=== PATIENT | female | born 1995 | race Caucasian/White ===

== ENCOUNTER 2019-08-04 21:57 | Emergency (ER) | payer MEDICAID, OTHER ==
[~2019-08-04] VITALS: Ht 165 cm; Wt 81.6 kg
--- OUTSIDE RECORDS SUMMARY | 2019-08-04 22:03 | XMS REPORT | Referral Summary ---
Author Author [facility] Organization [facility] Address Unknown Phone Unavailable Care Team Providers Care Event Decorator Name Role Phone Tonja Rodriguez PCP Encounter Date(s): 01/22/19 - 01/22/19 [facility] [place] [address] [place] [address] Discharge Disposition: 01-Home or Self Care Attending Physician: Consuelo Arce MD Vital Signs No data available for this section Problem List Condition Effective Dates Status Health Status Informan t Pseudotumor Active cerebri(Confirmed) Family history of Active congenital anomaly(Confirmed) History of Active delivery(Confirmed) Obesity in Active , antepartum(Confirmed ) (Confirmed) 05/19/18 Active (Confirmed) 03/06/13 - 12/12/13 Resolved (Confirmed) 06/25/14 - 04/01/15 Resolved (Confirmed) < 03/15/18 Resolved Allergies, Adverse Reactions, Alerts Substance Reaction Severity Status ibuprofen Active Rocephin Active Dilaudid Active Nuts Active Medications acetaminophen-phenylephrine 500 mg-5 mg oral tablet 2 tabs, Oral, q6hr, # 100 tabs, 0 Refill(s) Start Date: 12/23/18 Status: Ordered albuterol 90 mcg/inh inhalation powder 2 puffs, Inhalation, q4hr, SHORTNESS OF AIR, 0 Refill(s) Start Date: 09/02/18 Status: Ordered HYDROXYprogesterone 250 mg/mL intramuscular solution 250 mg 1 mL, IntraMuscular, Once, # 1 mL, 0 Refill(s) Start Date: 12/23/18 Status: Ordered Macrobid 100 mg, Oral, BID, 0 Refill(s) Start Date: 09/02/18 Status: Ordered Phenergan 25 mg, Oral, q4hr, 0 Refill(s) Start Date: 09/02/18 Status: Ordered 1 oral capsule 1 caps, Oral, Daily, # 30 caps, 0 Refill(s) Start Date: 08/15/18 Status: Ordered Reglan 10 mg oral tablet 10 mg 1 tabs, Oral, QID, # 120 tabs, 0 Refill(s) Start Date: 08/15/18 Status: Ordered Results No data available for this section Immunizations No data available for this section Procedures Procedure Date Related Diagnosis Body Site Status D&C - Dilatation and curettage 2018 [facility] ed Adenoidectomy 2002 Completed Social History Social History Type Response Smoking Status Never (less than 100 in lif etime) entered on: 08/15/18 Assessment and Plan No data available for this section
--- OUTSIDE RECORDS SUMMARY | 2019-08-04 22:03 | XMS REPORT | Referral Summary ---
Author Author [facility] Organization [facility] Address Unknown Phone Unavailable Care Team Providers Care Service Delivery Director Name Role Phone Tonja Rodriguez PCP Encounter Date(s): 06/16/19 - 06/16/19 [facility] [address] [place] [address] [phone] Discharge Disposition: 01-Home or Self Care Attending Physician: Dione Webb MD Admitting Physician: Dione Webb MD Vital Signs Most recent to 1 oldest [Reference Range]: Temperature Temporal 35.6 degC Artery [36.3-37.8 *LOW* degC] (06/16/19 1:50 PM) Peripheral Pulse 83 bpm Rate [60-100 bpm] (06/16/19 7:35 PM) Heart Rate Monitored 71 bpm [60-100 bpm] (06/16/19 1:35 PM) Respiratory Rate 16 br/min [14-20 br/min] (06/16/19 7:35 PM) Blood Pressure 111/69 mmHg [90-140/60-90 mmHg] (06/16/19 7:35 PM) Mean Arterial 95 mmHg Pressure, Cuff (06/16/19 1:30 PM) SpO2 98 % (06/16/19 1:50 PM) Problem List Condition Effective Dates Status Health Status Informan t Pseudotumor Active cerebri(Confirmed) Family history of Active congenital anomaly(Confirmed) History of Active delivery(Confirmed) Obesity in Active , antepartum(Confirmed ) (Confirmed) 05/19/18 Active (Confirmed) 03/06/13 - 12/12/13 Resolved (Confirmed) 06/25/14 - 04/01/15 Resolved (Confirmed) < 03/15/18 Resolved Allergies, Adverse Reactions, Alerts Substance Reaction Severity Status ibuprofen Active Rocephin Active Dilaudid Active Nuts1 Active 1tree nuts Medications acetaminophen-phenylephrine 500 mg-5 mg oral tablet 2 tabs, Oral, q6hr, # 100 tabs, 0 Refill(s) Start Date: 12/23/18 Status: Ordered acetaZOLAMIDE 500 mg, Oral, BID, 0 Refill(s) Start Date: 06/16/19 Status: Ordered albuterol 90 mcg/inh inhalation powder 2 puffs, Inhalation, q4hr, SHORTNESS OF AIR, 0 Refill(s) Start Date: 09/02/18 Status: Ordered Results Most recent to 1 oldest [Reference Range]: WBC [4.8-10.8 8.8 10*3/uL 10*3/uL] (06/16/19 11:14 AM) RBC [4.00-5.20] 4.44 (06/16/19 11:14 AM) INR [0.9-1.2] 1.1 (06/16/19 11:14 AM) BUN [4-20 mg/dL] 10 mg/dL (06/16/19 11:14 AM) Glucose Lvl [70-100 98 mg/dL mg/dL] (06/16/19 11:14 AM) Potassium Lvl 3.9 mEq/L [3.6-5.1 mEq/L] (06/16/19 11:14 AM) Baso Absolute 0.01 [0.00-0.20] (06/16/19 11:14 AM) MCV [82.0-99.0 fL] 86.9 fL (06/16/19 11:14 AM) MCHC [32.0-36.0 31.3 gm/dL gm/dL] *LOW* (06/16/19 11:14 AM) Sodium Lvl [136-144 137 mEq/L mEq/L] (06/16/19 11:14 AM) Lymph Absolute 2.13 [0.80-3.30] (06/16/19 11:14 AM) Hct [37.0-47.0 %] 38.6 % (06/16/19 11:14 AM) PTT [25.0-36.5 31.7 seconds 1 seconds] (06/16/19 11:14 AM) Calcium Lvl 9.4 mg/dL [8.6-10.0 mg/dL] (06/16/19:14 AM) [place] Absolute 1.14 [0.30-1.00] *HI* (06/16/19:14 AM) MCH [27.0-32.0 pg] 27.3 pg (06/16/19:14 AM) Neutro Absolute 5.28 [1.90-7.00] (06/16/1914 AM) Hgb [12.0-16.0 12.1 gm/dL gm/dL] (06/16/19:14 AM) MPV [9.4-12.4 fL] 10.0 fL (06/16/19:14 AM) Platelet [150-400 300 10*3/uL 10*3/uL] (06/16/19:14 AM) Chloride [99-109 105 mEq/L mEq/L] (06/16/1914 AM) CO2 [22-32 mEq/L] 22 mEq/L (06/16/19:14 AM) AGAP [3-20 mEq/L] 10 mEq/L (06/16/19:14 AM) Eos Absolute 0.15 [0.00-0.50] (06/16/1914 AM) RDW [11.5-14.5 %] 13.5 % (06/16/19:14 AM) Immature 0.5 % Granulocytes (06/16/1914 ) [0.0-1.0 %] Nucleated RBC 0.0 /100 WBC Automated [0 /100 (06/16/19:14 AM) WBC] eGFR [>60 mL/min] >60 mL/min 2 (06/16/19:14 AM) Creatinine Lvl 0.61 mg/dL [0.44-1.03 mg/dL] (06/16/1914 AM) Neutrophils [51-75 60 % %] (06/16/1914 AM) Lymphocytes [20-46 24 % %] (06/16/19:14 AM) Eosinophils [0-4 %] 2 % (06/16/1914 AM) Basophils [0-2 %] 0 % (3/16/20 11:14 AM) Screen, Negative Urine NPT [Negative] (06/15/19 11:30 PM) Monocytes [4-11 %] 13 % *HI* (06/16/19 11:14 AM) 1Result Comment: Please note updated reference range. 2Result Comment: Multiply eGFR results by 1.21 for race. Immunizations No data available for this section Procedures Procedure Date Related Diagnosis Body Site Status Selective catheter placement, internal 06/16/19 Completed carotid artery, unilateral, with angiog filiberto of the ipsilateral intracranial carotid circulation and all associated radiolog ical supervision and interpretation, include s angiography of the extracranial carotid and ce Selective catheter placement, vertebral 06/16/19 Completed artery, unilateral, with angiography of the ipsilateral vertebral circulation and a ll associated radiological supervision and interpretation, includes angiography of the cervicocerebral arch, when performed D&C - Dilatation and curettage 2018 [facility] ed Adenoidectomy 2002 Completed Social History Social History Type Response Smoking Status Never (less than 100 in lif etime) entered on: 08/15/18 Assessment and Plan No data available for this section
--- OUTSIDE RECORDS SUMMARY | 2019-08-04 22:03 | XMS REPORT | Referral Summary ---
Author Author [facility] Organization [facility] Address Unknown Phone Unavailable Care Team Providers Care Market Researcher Name Role Phone No PCP, Pt States PCP Encounter VC Date(s): 12/23/18 - 12/23/18 [facility] [address], [facility] [address] [place] [address]- Encounter Diagnosis Pseudotumor cerebri (Discharge Diagnosis) - 12/23/18 Obesity in , antepartum (Discharge Diagnosis) - 12/23/18 History of delivery (Discharge Diagnosis) - 12/23/18 Discharge Disposition: 01-Home or Self Care Attending Physician: Diogenes Taveras MD Vital Signs Most recent to 1 oldest [Reference Range]: Apical Heart Rate 108 bpm [60-100 bpm] *HI* (12/23/18 9:34 AM) Blood Pressure 108/73 mmHg [90-140/60-90 mmHg] (12/23/18 9:34 AM) Problem List Condition Effective Dates Status Health [...] Status D&C - Dilatation and curettage 2018 [facility] ed Adenoidectomy 2002 Completed Social History Social History Type Response Smoking Status Never (less than 100 in lif etime) entered on: 08/15/18 Assessment and Plan Extracted from: Title: Office Visit Note Author: Diogenes Taveras MD Date : 12/23/18 1.Obesity in , ante Factor V Leiden is considered a low risk thrombophiliaand recommended antepartum management is surveillance without anticoagulation therapy. Since she does not have additional risk factors, surveillance without anticoagulation therapy is also appropriate after is completed. Ordered: Office Visit Level 2 Est 32744 2.Pseudotumor cerebri Continue acetazolamide. She currently plans to have surgery with neurosurgeon [facility] after is completed. Ordered: Office Visit Level 2 Est 66164 3.History of delivery Continue 17 P injections. Ordered: Office Visit Level 2 Est 97470
--- OUTSIDE RECORDS SUMMARY | 2019-08-04 22:04 | XMS REPORT | Continuity of Care Document ---
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 Results Test Result Range HCG QUAL (URINE PREG) - 08/27/17 00:57 URINE PREG NEGATIVE UA WITH MICROSCOPY/CULTURE IF INDICATED - 02/19/19 12:20 URINE SAMPLE RANDOM U COLOR YELLOW NORMAL: STRAW-YELLOW U TURBIDITY Cloudy NORMAL: CLEAR U SP GRAVITY 1.025 NORMAL: 1.005-1.0 30 U NITRITE Negative NORMAL: NEGATIVE U pH 6.5 NORMAL: 5.0-8.0 U PROTEIN 2+ NORMAL: NEGATIVE U GLUCOSE Negative NORMAL: NEGATIVE U KETONES Negative NORMAL: NEGATIVE U UROBILINOGEN 0.2 NORMAL: 0.2 mg/ dl U BILIRUBIN 1+ NORMAL: NEGATIVE U BLOOD TR Lysed NORMAL: NEG - TRACE U LEUKO LOYD Trace NORMAL: NEGATIVE U MICROSCOPIC See Below U WBC 6-10 NORMAL: 0-5 U RBC 0-2 NORMAL: 0-4 U EPITHELIAL MANY NORMAL: NONE SEEN U BACTERIA 2+ NORMAL: NONE SEEN U MUCUS TRACE NORMAL: NONE SEEN U CRYSTALS NONE SEEN U CASTS NONE SEEN U CULTURE SET NO Sample of Urine: 10 ML UAMICROSCOPYANDCULTUREIFINDICATED COMP METABOLIC PROFILE - 02/19/19 13:51 COMPMETABOLICPROFILE FASTING SPECIMEN? UNKNOWN FINGER STICK NO SODIUM 134 mmol/L 136 - 145 POTASSIUM 3.8 mmol/L 3.5 - 4.8 CHLORIDE 101 mmol/L 98 - 107 TOTAL CO2 23 mmol/L 21 - 32 GLUCOSE 86 mg/dL 65 - 110 BUN 10 mg/dL 7 - 18 CREATININE 0.7 mg/dL 0.6 - 1.0 TOTAL BILI 0.2 mg/dL 0.0 - 1.0 DIRECT BILI 0.1 mg/dL 0.0 - 0.3 INDIRECT BILI 0.1 mg/dl 0.1 - 1.0 ALKALINE PHOS 197 U/L 50 - 136 SGPT/ALT 15 U/L 12 - 78 SGOT/AST 14 U/L 15 - 45 TOTAL PROTEIN 6.7 g/dL 6.4 - 8.2 ALBUMIN 2.5 g/dL 3.4 - 5.6 CALCIUM 8.7 mg/dL 8.5 - 10.0 AGE 24 YEARS GFR 108 ml/min/1.7 90 - 120 eGFR >60 mL/min/1.7 GFR >60 mL/min/1.7 CBC WITH DIFF - 02/19/19 13:51 FINGER STICK NO CBCWITHDIFF WBC 15.4 10^3uL 4.0 - 11.0 RBC 3.83 10^6uL 4.20 - 5.40 HEMOGLOBIN 10.1 g/dL 12.0 - 16.0 HEMATOCRIT 33.3 % 35.0 - 48.0 MCV 86.9 fl 78.0 - 95.0 MCH 26.4 pg 25.0 - 35.0 MCHC 30.3 g/dL 32.0 - 36.0 RDW 15.3 % 11.5 - 14.5 PLATELETS 227 10^3uL 130 - 400 %NEUTROPHILS 72.3 % 35.0 - 75.0 %LYMPHOCYTES 10.9 % 20.0 - 53.0 %MONOCYTES 6.9 % 0.0 - 10.0 %EOSINOPHILS 1.80 % 0.00 - 8.00 %BASOPHILS 0.40 % 0.00 - 2.00 %IG 7.70 % 0.00 - 0.90 #NEUTROPHILS 11.10 1.80 - 7.50 #LYMPHOCYTES 1.68 0.70 - 3.10 #MONOCYTES 1.06 0.20 - 0.90 #EOSINOPHILS 0.27 0.00 - 0.50 #BASOPHILS 0.06 0.00 - 0.10 #IG 1.18 0.00 - 0.03 MANUAL DIFF INSTRUMENT IN RBC MORPH NOT INDICATED SEGS 74 % 35 - 75 BANDS 1 % 0 - 6 LYMPHS 12 % 20 - 53 MONOS 5 % 0 - 10 EOS 4 % 0 - 7 BASOS 0 % 0 - 2 METAS 4 % 0 - 0 MYEL 0 % 0 - 0 PROM 0 % 0 - 0 %NRBC 0.40 % 0.00 - 10.00 #NRBC 0.06 0.40 - 1.10 WET PREP - 06/24/16 20:30 SOURCE VAGINAL GC/CHLAMYDIA VAG/ENDOCERVICAL - 06/24/16 20:30 NOTIFY IFC YES CHLAMYDIA NOT DETECTED GC DETECTED SOURCE VAGINAL LACTATE - 06/24/16 21:38 LACTIC ACID 1.30 mmol/L 0.40 - 2.00 HIV AB/AG - 07/08/18 16:40 NOTIFY IFC NO HIV AB/AG NON REACTIVE NORMAL: NONREACT TALIA HIV CONFIRMATION NO HEP B SURF AG - 07/08/18 16:40 NOTIFY IFC NO HEP B SAG NONREACTIVE SYPHILIS AB - 07/08/18 16:40 NOTIFY IFC NO SYPHILIS AB NON REACTIVE SYPHILIS TP-PA NO D-DIMER - 07/15/17 09:25 D-DIMER 337 ng/ml 215 - 499 TROP I - 07/15/17 09:25 TROP I <0.02 ng/ml 0.00 - 0.06 ALCOHOL - 08/26/17 23:40 ALCOHOL <3.0 mg/dL DRUG SCR UR TRIAGE - 08/27/17 00:57 DRUGSCRURTRIAGE AMPHETAMINE NEGATIVE 500 NG/ML BENZODIAZEPINES NEGATIVE 150 NG/ML COCAINE NEGATIVE 150 NG/ML MARIJUANA NEGATIVE 50 NG/ML METHADONE NEGATIVE 200 NG/ML METHAMPHETAMINE NEGATIVE 500 NG/ML OPIATES NEGATIVE 100 NG/ML OXYCODONE NEGATIVE 100 NG/ML PHENCYCLIDINE NEGATIVE 25 NG/ML PROPOXYPHENE NEGATIVE 300 NG/ML TRICYCLIC NEGATIVE 300 NG/ML BARBITURATES NEGATIVE 200 NG/ML BUPRENORPHINE NEGATIVE 10 NG/ML ANY POSITIVE? NO CBC NO DIFF - 07/08/18 16:40 FINGER STICK NO WBC 11.8 10^3uL 4.0 - 11.0 RBC 4.08 10^6uL 4.20 - 5.40 HEMOGLOBIN 11.8 g/dL 12.0 - 16.0 HEMATOCRIT 36.4 % 35.0 - 48.0 MCV 89.2 fl 78.0 - 95.0 MCH 28.9 pg 25.0 - 35.0 MCHC 32.4 g/dL 32.0 - 36.0 RDW 13.6 % 11.5 - 14.5 PLATELETS 329 10^3uL 130 - 400 CBCNODIFF RUBELLA TITER - 07/08/18 16:40 NOTIFY IFC NO RUBELLA IGG 34 IU/mL BB ANTIBODY SCREEN - 07/08/18 16:40 ANTIBODY SCRN NEGATIVE BB TYPE & RH - 07/08/18 16:40 ABO/RH A POS CBC With Platelet and Differential - 06/18 10:57 Absolute Basophils 0.02 10*3/uL 0.00-0.2 0 Absolute Eosinophils 0.43 10*3/uL 0.00-0 .50 Absolute Lymphocytes 2.56 10*3/uL 0.80-3 .30 Absolute Monocytes 1.03 10*3/uL 0.30-1.0 0 Absolute Neutrophils 10.27 10*3/uL 1.90- 7.00 Basophils 0 % 0-2 Eosinophils 3 % 0-4 HCT 35.3 % 37.0-47.0 HGB 11.7 g/dL 12.0-16.0 Immature Granulocytes 1.4 % 0.0-1.0 Lymphocytes 18 % 20-46 MCH 29.5 pg 27.0-32.0 MCHC 33.1 g/dL 32.0-36.0 MCV 88.9 fL 82.0-99.0 Monocytes 7 % 4-11 MPV 10.1 fL 9.4-12.4 Neutrophils 71 % 51-75 Nucleated RBC Automated 0.0 /100 WBC Platelet Count 267 K/uL 150-400 RBC 3.97 10*6/uL 4.00-5.20 RDW 13.6 % 11.5-14.5 WBC 14.5 K/uL 4.8-10.8 PTT/PT (INR) - 09/02/18 10:57 INR 0.9 NA 0.9-1.2 Glucose, CSF - 09/02/18 11:57 Glucose, CSF 54 mg/dL 40-70 Protein, CSF - 09/02/18 11:57 Protein, CSF 10 mg/dL 15-45 CSF Cell Count with Differential - 09/02 11:57 Appearance, CSF Clear NA Clear Color, CSF Colorless NA Colorless Color, CSF Post Centrifugation Colorless NA Colorless Volume, CSF 24.0 mL Lymphocytes, CSF 100 % 0 - 100 RBC, CSF 0 /mm3 0 - 0 WBC, CSF 1 /mm3 0-10 URIC ACID - 02/19/19 13:51 URIC ACID 6.9 mg/dL 3.0 - 5.9 LDH - 02/19/19 13:51 LDH 166 U/L 81 - 234 TP/CREAT RATIO RANDOM URINE - 02/19/19 1 2:20 PROTEIN UR 124.40 mg/dL 6.00 - 10.00 CREATININE UR 194.87 mg/dL 30.00 - 125 TP/CREAT RATIO 0.64 0.10 - 1.00 FIBRONECTIN - 12/16/18 18:31 FIBRONECTIN NEGATIVE PROTEIN 24 HR UR - 02/07/19 11:20 PROTEIN UR 10.20 mg/dL 6.00 - 10.00 [id number] URINE VOLUME 2250 ml URINE PROTEIN/24HR 230 mg/24hr 0 - 149 SGOT/AST - 02/07/19 11:20 SGOT/AST 11 U/L 15 - 45 SGPT/ALT - 02/07/19 11:20 SGPT/ALT 14 U/L 12 - 78 CREAT CL SERUM - 02/07/19 11:20 CREATININE 0.7 mg/dL 0.6 - 1.0 CREAT CLEARANCE - 02/07/19 11:20 URINE VOLUME 2250 ml CREATCLEARANCE URINE CREATININE 55.2 mg/dL SERUM CREATININE 0.7 mg/dL CREATININE CLEARANCE 123 ml/MINS 70 - 13 0 H AND H - 02/21/19 06:25 HEMOGLOBIN 9.1 g/dL 12.0 - 16.0 HEMATOCRIT 29.6 % 35.0 - 48.0 HANDH CREATININE - 02/21/19 06:25 CREATININE 0.7 mg/dL 0.6 - 1.0 AGE 24 YEARS GFR 108 ml/min/1.7 90 - 120 eGFR >60 mL/min/1.7 GFR >60 mL/min/1.7 Screen, Urine NPT - 06/15/19 2 3:30 Screen, Urine NPT Negative NA Negative Radiology Report from [id number] on 07/2018 04:45:00 Reason For ExamBenign intracranial hyper tensionREPORTINDICATION: 23-year-old female with intractable headaches with suspectedidiopathic intracranial hypertension. Fluoroscopic-guided lumbar puncture withpressure measurements was requested.COMPARISONS: NoneTECHNIQUE:Informed consent was obtained. Patient was placed prone on the fluoroscopytable. The skin surface of the lower back was prepped and draped in sterilefashion. 1% lidocaine was used for local anesthetic. Under fluoroscopicguidance, a 22-gauge spinal needle was advanced into the thecal sac at the levelof L3. Opening pressure in the left lateral decubitus position was 38 cm H2O. 25mL of clear and colorless CSF fluid was removed with specimen sent for testing.Closing pressure was 12 cm H2O. Patient tolerated the procedure and there wereno immediate post procedure complications.IMPRESSION:Successful fluoroscopic-guided lumbar puncture with opening pressure of 38 cmH2O, and after removal of 25 mL of clear and colorless CSF fluid, closingpressure was 12 cm H2O.Tech Comments: Fluoroscopy time (in minutes): 0.2# of Fluoro Images Acquired 1Dictated on workstation:[id number] Line PRELIMINARY DICTATED BY: CATHY SIDDIQUI V MDDICTATED DT/TM: 09/02/2018 3:45 Radiology Report from [id number] on 06/18 12:28:00 Reason For Examdural sinusREPORTINDICATI ON: 24-year-old female with idiopathic intracranial hypertension,presents for angiographic assessment.COMPARISONS: MRI brain 08/23/2018TECHNIQUE:Risks, benefits and alternatives were discussed. Informed consent was obtained.Patient was placed supine in the angiography table. Skin surface over the rightgroin was prepped and draped in sterile fashion. 1% lidocaine was used for localanesthetic. A micropunch needle was then advanced into the right common femoralartery and the arteriotomy was upsized to a 4-Indian sheath. A 4-Frenchvertebral catheter was then positioned in the right ICA followed by the left ICAand finally the left vertebral artery. Contrast was injected and digitalsubtraction angiography was performed in a biplane mode over these vasculardistributions. At the end of the procedure, the diagnostic catheter and rightgroin sheath were removed and hemostasis was uneventfully obtained using manualcompression. Patient tolerated the procedure and there were no immediate postprocedure complications.FINDINGS:Right ICA:Selective injection of the right internal carotid artery shows normal appearinghigh cervical, petrous, cavernous and supra-clinoid segments. The posteriorcommunicating artery is seen and there is washout of contrast in the P2 segmentof the right LEAD ACCOUNTANT. A1 and A2 segments of the right RENETTA, M1, M2 and [id number] vessels of the right MCA show normal brisk flow. The capillaryphase is normal. On the venous phase, the parasagittal sinuses are widelypatent. There segmental areas of narrowing in the right transverse sinus. Thereis brisk flow in the sigmoid sinus into the right IJ. The proximal lefttransverse sinus is occluded but no significant flow is seen in the lefttransverse sinus from the right ICA injection. Arachnoid granulation in theright transverse sinus at the level of the vein and Esther.Left ICA:Selective injection of the left internal carotid artery shows normal appearinghigh cervical, petrous, cavernous and supraclinoid segments. A1 and A2 segmentsleft RENETTA, M1, M2 and M3 trifurcation vessels left MCA show brisk flow. The leftvein of Esther is widely patent and shows flow into the left transverse sinus.The more proximal transverse sinus is again noted to be occluded. The superiorsagittal sinus drains into the right transverse sinus. Additional competingvenous collaterals along the skull base are noted.Left vertebral artery:Selective injection of left vertebral artery shows flash filling of contrastinto the right vertebral artery. Both PICA, AICA, basilar artery, SCA and PCAsshow brisk flow with normal arterial, and capillary phases. Venous phase doesshow some flow in the proximal portion of the left transverse sinus whichpreviously was not identified with the ICA injections. Multiple skull basecompeting collaterals are again noted.Given this variant anatomy, it was felt that dural sinus venogram with pressuremeasurements should be performed under anesthesia.IMPRESSION:1. Although the proximal left transverse sinus did not opacify with the right orleft carotid injection, it did partially opacify with a left vertebral injectionsuggesting a high-grade stenosis.2. There is multisegment areas of narrowing in the right transverse sinus whichis the dominant drainage to the anterior circulation.3. Unremarkable angiographic assessment of the anterior or posterior circulationwith normal arterial and capillary phases of the angiogram.Patient will be brought back to undergo dural sinus venous measurements underanesthesia.Tech Comments: IV Contrast Name: OMNIPAQUE 300Fluoroscopy time (in minutes): 4.8# of Fluoro Images Acquired 560Dictated on workstation:[id number] Line PRELIMINARY DICTATED BY: CATHY SIDDIQUI V MDDICTATED DT/TM: 06/19/2019 8:52 Encounters ACCT No. Visit Date/Time Discharge Status Pt. Type Provider Facility Loc./Unit Complaint [id number] 02/19/2019 16:15:00 02/22/2019 15:20 :00 DIS Inpatient LIZ LEANDRA [facility] [id number] 02/07/2019 11:07:00 02/07/2019 23:59 :59 CLS Outpatient JOEY OLVERA [id number] 02/03/2019 14:33:00 02/03/2019 23:59 :59 CLS Outpatient JOEY OLVERA [id number] 01/28/2019 10:35:00 01/28/2019 13:10 :00 DIS Outpatient JOEY OLVERA on [facility] [id number] 12/17/2018 18:01:00 12/17/2018 18:28 :00 DIS Outpatient JOEY OLVERA on [facility] [id number] 12/16/2018 16:08:00 12/16/2018 21:05 :00 DIS Outpatient JOEY OLVERA on [facility] [id number] 11/14/2018 14:57:00 11/14/2018 17:00: 00 DIS Outpatient FAWAD GRANDA [facility] [id number] 10/17/2018 10:49:00 10/17/2018 22:59: 00 DIS Outpatient LEANDRA HILL [facility] [id number] 08/01/2018 17:54:00 08/02/2018 16:45: 00 DIS Outpatient LEANDRA HILL [facility] [id number] 07/23/2018 07:02:00 07/23/2018 07:02: 00 DIS Outpatient CONSUELO ARCE [id number] 07/16/2018 20:07:00 07/16/2018 23:50: 00 DIS Emergency Joseph GENTILE [facility] 042 [id number] 07/08/2018 16:29:00 07/08/2018 23:59: 59 CLS Outpatient JOEY OLVERA [id number] 08/26/2017 22:38:00 08/27/2017 03:33: 00 DIS Emergency DIMAS BELT[facility] [id number] 07/15/2017 09:03:00 07/15/2017 12:35: 00 DIS Emergency NEFTALY JONES [facility] [id number] 07/09/2017 13:58:00 07/09/2017 13:58: 00 DIS Outpatient LEANDRA HILL [id number] 07/04/2017 16:02:00 07/04/2017 23:59: 59 CLS Outpatient PHYLLIS PETERSEN [id number] 08/03/2016 12:53:00 08/03/2016 15:45: 00 DIS Emergency JONAHMEHBOOB I [facility] [id number] 08/01/2016 16:07:00 08/01/2016 17:50: 00 DIS Emergency JONAHME NikiHBOOB I [facility] [id number] 06/24/2016 17:16:00 06/24/2016 23:20: 00 DIS Emergency JOHAN JEONG [facility] 042 [id number] 06/16/2019 10:28:00 20:10:00 DIS Outpatient Siddiqui,, Suryakumar [facility] on [facility] 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 dural sinus [id number] 01/22/2019 13:59:00 23:59:00 DIS Outpatient Consuelo Arce [facility] on [facility] Benign intracranial hypertension [id number] 09/02/2018 10:00:00 15:35:00 DIS Outpatient Siddiqui,, Suryakumar [facility] on [facility] F3E Benign intracranial hypertension [id number] 06/17/2019 05:13:12 Document Registration [id number] 09/03/2018 05:21:09 Document Registration [id number] 07/12/2018 11:03:36 Document Registration [id number] 07/09/2017 17:12:28 Document Registration [id number] 08/04/2019 21:59:[address] Emergency KIAH HOFF DO [facility] [id number] 05/01/2019 08:35:00 Document Registration [id number] 09/27/2018 13:08:42 Document Registration [id number] 09/26/2018 10:15:00 Document Registration [id number] 07/18/2018 10:00:00 Document Registration [id number] 06/10/2018 10:40:00 Document Registration [id number] 06/10/2018 00:00:00 Document Registration [id number] 07/03/2017 10:20:00 Document Registration [id number] 06/26/2017 14:20:00 Document Registration [id number] 06/26/2017 00:00:00 Document Registration [id number] 08/25/2016 00:00:00 Document Registration [id number] 07/31/2016 08:30:00 Document Registration [id number] 07/28/2016 10:50:00 Document Registration [id number] 03/01/2016 10:50:00 Document Registration [id number] 03/01/2016 00:00:00 Document Registration
[2019-08-04 22:09] LABS: BASOPHILS % (AUTO) 0 % (0-10); EOSINOPHILS # (AUTO) 0.2 10^3/uL (0.0-0.3); EOSINOPHILS % (AUTO) 2 % (0-10); HEMATOCRIT 42 % (35-52); HEMOGLOBIN 13.7 G/DL (11.5-16.0); LYMPHOCYTES # (AUTO) 2.5 X 10^3 (1.0-4.0); LYMPHOCYTES % (AUTO) 27 % (12-44); MEAN CORPUSCULAR HEMOGLOBIN 28 PG (25-34); MEAN CORPUSCULAR HGB CONC 33 G/DL (32-36); MEAN CORPUSCULAR VOLUME 86 FL (80-99); MEAN PLATELET VOLUME 9.8 FL (7.4-10.4); MONOCYTES # (AUTO) 0.6 X 10^3 (0.0-1.0); MONOCYTES % (AUTO) 6 % (0-12); NEUTROPHILS # (AUTO) 6.2 X 10^3 (1.8-7.8); NEUTROPHILS % (AUTO) 65 % (42-75); PLATELET COUNT 399 10^3/uL (130-400); RED CELL DISTRIBUTION WIDTH 13.9 % (10.0-14.5); WHITE BLOOD COUNT 9.5 10^3/uL (4.3-11.0)
[2019-08-04 22:18] LABS: ALBUMIN 4.7 GM/DL (3.2-4.5); CHLORIDE 105 MMOL/L (98-107); POTASSIUM 4.1 MMOL/L (3.6-5.0); SODIUM 138 MMOL/L (135-145)
[2019-08-04 22:19] LABS: CALCIUM 10.4 MG/DL (8.5-10.1)
[2019-08-04 22:20] LABS: AMYLASE 47 U/L (25-125); GLUCOSE 114 MG/DL (70-105)
[2019-08-04 22:21] LABS: TOTAL PROTEIN 8.1 GM/DL (6.4-8.2)
[2019-08-04 22:22] LABS: BILIRUBIN,TOTAL 0.2 MG/DL (0.1-1.0); CARBON DIOXIDE 21 MMOL/L (21-32)
[2019-08-04 22:24] LABS: ALKALINE PHOSPHATASE 108 U/L (40-136); GFR ESTIMATED > 60
[2019-08-04 22:25] LABS: BUN/CREATININE RATIO 16
[2019-08-04 22:27] LABS: ALANINE AMINOTRANSFERASE 25 U/L (0-55); MAGNESIUM 2.1 MG/DL (1.6-2.4); SALICYLATE < 5.0 MG/DL (5.0-20.0)
[2019-08-04 22:28] LABS: INR 0.9 (0.8-1.4); PROTHROMBIN TIME PATIENT 12.4 SEC (12.2-14.7)
[2019-08-04] MEDS ORDERED: LACTATED RINGERS 1,000 ML IV ONE (22:30)
[2019-08-04] MEDS ORDERED: PANTOPRAZOLE 40 MG (PROTONIX) VIAL IV ONE (22:30)
[2019-08-04 22:31] LABS: ACETAMINOPHEN < 10 UG/ML (10-30)
[2019-08-04 22:32] LABS: BILIRUBIN,URINE NEGATIVE (NEGATIVE); CLARITY,URINE CLOUDY; COLOR,URINE YELLOW; GLUCOSE, URINE (UA) NEGATIVE (NEGATIVE); KETONES,URINE NEGATIVE (NEGATIVE); LEUKOCYTE ESTERASE ,URINE 1+ (NEGATIVE); NITRITE,URINE POSITIVE (NEGATIVE); PROTEIN,URINE NEGATIVE (NEGATIVE)
[2019-08-04 22:40] LABS: AMORPHOUS SEDIMENT,UR FEW AMOR URATES /LPF; BACTERIA,URINE LARGE /HPF; RBC,URINE 0-2 /HPF
[2019-08-04 23:04] LABS: AMPHETAMINE SCREEN, URINE NEGATIVE (NEGATIVE); BARBITURATE SCREEN URINE NEGATIVE (NEGATIVE); BENZODIAZEPINES SCREEN URINE NEGATIVE (NEGATIVE); CANNABINOID SCREEN, URINE NEGATIVE (NEGATIVE); COCAINE SCREEN URINE NEGATIVE (NEGATIVE); METHADONE STAT NEGATIVE (NEGATIVE); METHAMPHETAMINE SCREEN URINE S NEGATIVE (NEGATIVE); OPIATE SCREEN URINE NEGATIVE (NEGATIVE); OXYCODONE STAT NEGATIVE (NEGATIVE); PROPOXYPHENE STAT NEGATIVE (NEGATIVE); TRICYCLIC ANTIDEPRESSANTS SCRE NEGATIVE (NEGATIVE)
[2019-08-04] MEDS ORDERED: RX-NITROFURANTOIN 100 MG (MACROBID) CAP PPK#2 PO STA (23:08)
--- NOTE | 2019-08-04 23:08 | ED Psychosocial ---
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 SIDDIQUI IN [place]--AND HAD ANGIOGRAM OF HER HEAD DONE AT THAT TIME. STATES SHE WAS SUPPOSED TO HAVE SURGERY IN JULY FOR HIV COUNSELOR SHUNT, BUT IT WAS CANCELLED DUE TO COVID-19 PANDEMIC. STATES SHE DELIVERED IN JANUARY, AND WAS PRESCRIBED ZOLOFT, DUE TO HAVING SEVERE POST DEPRESSION IN 2013 AFTER THE OF ANOTHER CHILD--WAS PRESCRIBED ZOLOFT AT THAT TIME, AND HAD SUICIDAL THOUGHTS/GESTURE AT THAT TIME, BUT NOT SINCE THAT TIME. PT STATES SHE REFUSED TO TAKE THE ZOLOFT PT DENIES THAT SHE WAS TRYING TO HARM HERSELF OR HAVING ANY THOUGHTS OF SUICIDE TODAY OR RECENTLY. PT IS NOT STATES SHE "JUST MOVED HERE" FROM [place], [place] IN MAY WITH HER AND KIDS STATES SHE HAS NOT ESTABLISHED WITH LOCAL , BUT HAS AN APPOINTMENT 08/08/19 AT [facility] TO ESTABLISH CARE STATES THERE ARE 5 ADULTS AND 7 CHILDREN IN THE HOME--LIVES WITH HER , HIS "GODMOTHER", HER CHILDREN WITH HER , HIS "GODMOTHER'S KIDS" AND "THE PEOPLE THAT ARE DOWNSTAIRS IN THE [place]" -STATES 2 ADULTS LIVE IN [place]. STATES "WE'RE NOT SUPPOSED TO BE LIVING THERE BECAUSE IT'S A HUD HOUSE" AND STAT ES "THE PEOPLE THAT LIVE IN THE [place] ARE DRUG ADDICTS" AND "CAN'T DO LAUNDRY BECAUSE THE WASHER AND DRYER ARE IN THE [place]" STATES EVERYONE IN THE HOUSE IS FIGHTING WITH EACH OTHER ALL THE TIME STATES THEY MOVED HERE "BECAUSE I WAS TIRED OF FIGHTING ABOUT IT" --STATES HAS "FAMILY" HERE AND HE WANTED TO MOVE HERE, BUT SHE DID NOT --STATES MULTIPLE TIMES "I JUST WANNA GO HOME" ( TO [place], [place]) "BUT I CAN'T--BECAUSE MY DOESN'T WANT TO MOVE BACK" ALSO STATES "MY FAMILY DISOWNED ME--BECAUSE I MOVED HERE AND I WON'T DIVORCE HIM" STATES SHE HAS BEEN FIGHTING WITH HER ALL DAY, WENT FOR A WALK WITH HER KIDS AND CAME HOME AND TOOK THE PILLS STATES SHE WAS IN THE BEDROOM ALONE WHEN SHE TOOK THE PILLS "RIGHT AFTER I TEXTED MY AND TOLD HIM I LOVED HIM AND TOLD HIM I WAS SORRY" -STATES HE WAS AT HOME IN ANOTHER ROOM DURING THIS TIME. PT AGAIN DENIES ANY SUICIDAL INTENT/THOUGHT PT HAS AN APPOINTMENT WITH [facility] 08/08/19 TO ESTABLISH CARE NO KNOWN SICK CONTACTS OR EXPOSURE TO COVID-19 Allergies and Home Medications Allergies Coded Allergies: No Allergy Information Available (Unverified , 08/04/19) Home Medications Nitrofurantoin Monohyd/M-Cryst 100 Mg Capsule, 1 TAB PO BID Prescribed by: KIAH HOFF on 08/04/19 6168 Patient Home Medication List Home Medication List Reviewed: Yes Review of Systems Constitutional: no symptoms reported; No chills, No diaphoresis, No dizziness, No fever EENTM: no symptoms reported Respiratory: no symptoms reported; No cough, No short of breath Cardiovascular: no symptoms reported Gastrointestinal: no symptoms reported Genitourinary: no symptoms reported : No LMP: August 01, 2019 Control/STD Prophylaxis: Other (BTL 01/2019. ) Musculoskeletal: no symptoms reported Skin: no symptoms reported Psychiatric/Neurological: See HPI, Anxiety, Depressed, Emotional Problems, Headache; Denies Numbness, Denies Paresthesia, Denies Seizure, Denies Tingling, Denies Tremors, Denies Weakness Past [id number] Hx Past Med/Social Hx: Reviewed and Corrections made Patient Social History Alcohol Use: Denies Use Recreational Drug Use: No (DENIES) Smoking Status: Never a Smoker Recent Foreign Travel: No Contact w/Someone Who Travel: No Past Medical History Surgeries: Yes ( 01/2019; ANGIOGRAM OF BRAIN -06/2019 IN [place]) Tubal Ligation Respiratory: Yes Asthma Cardiac: No Neurological: Yes (IDIOPATHIC INTRACRANIAL HTN-DX 06/2019-HIV COUNSELOR SHUNT PLANNED, BUT SURGERY CANCEL) Headaches /Migraines Reproductive Disorders: 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 oz. kg; BMI Method: General Appearance: WD/WN, no apparent distress, other (CRYING, TALKING "BABY TALK" ) HEENT: PERRL/EOMI Neck: normal inspection Respiratory: normal breath sounds, no respiratory distress, no accessory muscle use Cardiovascular: regular rate, rhythm, no murmur Gastrointestinal: non tender, soft Extremities: non-tender, normal inspection, normal capillary refill Neurologic/Psychiatric: elastic assembler II-XII nml as tested, no motor/sensory deficits, alert, oriented x 3 Appearance/Memory: no memory impairment, disheveled Behavior/Eye Contact: cooperative, good eye contact Thoughts/Hallucinations: no apparent hallucination Skin: normal color, warm/dry, tattoos/piercings Progress/Results/Core Measures Results/Orders Lab Results Laboratory Tests Test 08/04/19 22:01 08/04/19 22:17 Range/Units White Blood Count 9.5 4.3-11.0 10^3/uL Red Blood Count 4.87 4.35-5.85 10^6/uL Hemoglobin 13.7 11.5-16.0 G/DL Hematocrit 42 35-52 % Mean Corpuscular Volume 86 80-99 FL Mean Corpuscular Hemoglobin 28 25-34 PG Mean Corpuscular Hemoglobin Concent 33 32-36 G/DL Red Cell Distribution Width 13.9 10.0-14.5 % Platelet Count 399 130-400 10^3/uL Mean Platelet Volume 9.8 7.4-10.4 FL Neutrophils (%) (Auto) 65 42-75 % Lymphocytes (%) (Auto) 27 12-44 % Monocytes (%) (Auto) 6 0-12 % Eosinophils (%) (Auto) 2 0-10 % Basophils (%) (Auto) 0 0-10 % Neutrophils # (Auto) 6.2 1.8-7.8 X 10^3 Lymphocytes # (Auto) 2.5 1.0-4.0 X 10^3 Monocytes # (Auto) 0.6 0.0-1.0 X 10^3 Eosinophils # (Auto) 0.2 0.0-0.3 10^3/uL Basophils # (Auto) 0.0 0.0-0.1 10^3/uL Prothrombin Time 12.4 12.2-14.7 SEC INR Comment 0.9 0.8-1.4 Activated Partial Thromboplast Time 29 24-35 SEC Sodium Level 138 135-145 MMOL/L Potassium Level 4.1 3.6-5.0 MMOL/L Chloride Level 105 98-107 MMOL/L Carbon Dioxide Level 21 21-32 MMOL/L Anion Gap 12 5-14 MMOL/L Blood Urea Nitrogen 14 7-18 MG/DL Creatinine 0.90 0.60-1.30 MG/DL Estimat Glomerular Filtration Rate > 60 BUN/Creatinine Ratio 16 Glucose Level 114 H 70-105 MG/DL Calcium Level 10.4 H 8.5-10.1 MG/DL Corrected Calcium 8.5-10.1 MG/DL Magnesium Level 2.1 1.6-2.4 MG/DL Total Bilirubin 0.2 0.1-1.0 MG/DL Aspartate Amino Transf (AST/SGOT) 15 5-34 U/L Alanine Aminotransferase (ALT/SGPT) 25 0-55 U/L Alkaline Phosphatase 108 40-136 U/L Total Protein 8.1 6.4-8.2 GM/DL Albumin 4.7 H 3.2-4.5 GM/DL Amylase Level 47 25-125 U/L Serum Test, Qualitative NEGATIVE NEGATIVE Salicylates Level < 5.0 L 5.0-20.0 MG/DL Acetaminophen Level < 10 L 10-30 UG/ML Serum Alcohol < 10 <10 MG/DL Urine Color YELLOW Urine Clarity CLOUDY Urine pH 6.0 5-9 Urine Specific [place] >=1.030 1.016-1.022 Urine Protein NEGATIVE NEGATIVE Urine Glucose (UA) NEGATIVE NEGATIVE Urine Ketones NEGATIVE NEGATIVE Urine Nitrite POSITIVE H NEGATIVE Urine Bilirubin NEGATIVE NEGATIVE Urine Urobilinogen 0.2 < = 1.0 MG/DL Urine Leukocyte Esterase 1+ H NEGATIVE Urine RBC (Auto) 1+ H NEGATIVE Urine RBC 0-2 /HPF Urine WBC 10-25 H /HPF Urine Crystals PRESENT H /LPF Urine Amorphous Sediment FEW ANASTASIA URATES H /LPF Urine Bacteria LARGE H /HPF Urine Casts NONE /LPF Urine Mucus LARGE H /LPF Urine Culture Indicated YES Urine Opiates Screen NEGATIVE NEGATIVE Urine Oxycodone Screen NEGATIVE NEGATIVE Urine Methadone Screen NEGATIVE NEGATIVE Urine Propoxyphene Screen NEGATIVE NEGATIVE Urine Barbiturates Screen NEGATIVE NEGATIVE Ur Tricyclic Antidepressants Screen NEGATIVE NEGATIVE Urine Phencyclidine Screen NEGATIVE NEGATIVE Urine Amphetamines Screen NEGATIVE NEGATIVE Urine Methamphetamines Screen NEGATIVE NEGATIVE Urine Benzodiazepines Screen NEGATIVE NEGATIVE Urine Cocaine Screen NEGATIVE NEGATIVE Urine Cannabinoids Screen NEGATIVE NEGATIVE My Orders Orders - KIAH HOFF DO Ed Iv/Invasive Line Start (08/04/19 22:00) Ekg Tracing (08/04/19 22:00) Monitor-Rhythm Ecg Trace Only (08/04/19:00) Acetaminophen (08/04/19 22:00) Alcohol (08/04/19 22:00) Amylase (08/04/19 22:00) Cbc With Automated Diff (08/04/19 22:00) Comprehensive Metabolic Panel (08/04/19 22:00) Drug Screen Stat (Urine) (08/04/19 22:00) Hcg,Qualitative Serum (08/04/19 22:00) Magnesium (08/04/19 22:00) Protime With Inr (08/04/19 22:00) Partial Thromboplastin Time (08/04/19 22:00) Salicylate (08/04/19 22:00) Ua Culture If Indicated (08/04/19 22:00) Ed Iv/Invasive Line Start (08/04/19 22:30) Lactated Ringers (Lr 1000 Ml Iv Solution (08/04/19 22:30) Pantoprazole Injection (Protonix Injecti (08/04/19 22:30) Urine Culture (08/04/19 22:17) Rx-Nitrofurantoin [place] (Rx-Macrobid) (08/04/19 23:08) Medications Given in ED Current Medications Medications Dose Ordered Sig/Gregg Route Start Time Stop Time Status Last Admin Dose Admin Lactated Ringer's 1,000 ml @ 0 mls/hr Q0M ONCE IV 08/04/19 22:30 08/04/19 22:31 DC 08/04/19 22:40 1,000 MLS/HR Pantoprazole 40 mg ONCE ONCE IV 08/04/19 22:30 08/04/19 22:31 DC 08/04/19 22:40 40 MG Vital Signs/I&O 08/04/19 08/04/19 22:01 23:22 Temp 36.7 Pulse 78 56 Resp 20 14 B/P (MAP) 147/107 (120) 125/80 Pulse Ox 100 95 Progress Progress Note : Progress Note PT REPEATS THAT SHE WAS NOT TRYING TO HURT HERSELF, AND DENIES ANY SUICIDAL THOUGHTS DURING ER STAY PT ADVISED TO FOLLOW UP WITH [facility] IN THE MORNING, OR IF UNABLE TO GET AN APPOINTMENT THERE, SHE SHOULD GO TO WALK IN CLINIC AT [facility] Initial ECG Impression Date: August 04, 2019 Initial ECG Impression Time: 22:02 Initial ECG Rate: 83 Initial ECG Rhythm: Normal Sinus Initial ECG Comparisson: No Previous ECG Available Departure Impression Primary Impression: NON-TOXIC DRUG OVERDOSE Additional Impressions: Chronic depression UTI (urinary tract infection) Disposition: 01 HOME, SELF-CARE Condition: Stable Departure-Patient Inst. Referrals: [facility] Patient Instructions: Accidental Overdose (DC), Depression During and After , SUICIDE CONTRACT, Suicide Prevention, Urinary Tract Infection, Adult (DC) Add. Discharge Instructions: LOTS OF CLEAR LIQUIDS NO OVER THE COUNTER MEDICATIONS FOLLOW UP WITH [facility] TOMORROW MORNING ( THEY OPEN AT 0700 ) --GO TO BEHAVIORAL HEALTH, OR GO TO THE WALK IN CLINIC RETURN TO ER IF SYMPTOMS WORSEN All discharge instructions reviewed with patient and/or family. Voiced understanding. Scripts Nitrofurantoin Monohyd/M-Cryst (Macrobid 100 mg Capsule) 100 Mg Capsule 1 TAB PO BID, #20 CAP Prov: KIAH HOFF DO 08/04/19 KIAH HOFF DO August 04, 2019 23:08
[2019-08-04] MEDS ORDERED: NITR-65 PO (23:09)
[2019-08-04 23:22] VITALS: BP 125/80
== END 2019-08-04 23:30 | disposition home or self-care (01) ==
LOC: ER 21:59
DX: T39.311A Poisoning by propionic acid derivatives, accidental (unintentional), initial encounter (principal); F32.89 Other specified depressive episodes; N39.0 Urinary tract infection, site not specified
CPT/HCPCS: 36415; 80053; 80306; 80320; 80329; 81000; 82150; 83735; 84703; 85025; 85610; 85730; 87077; 87088; 87186; 93041